=== PATIENT | female | born 1965 | race Caucasian/White ===

== ENCOUNTER 2017-10-02 21:31 | Emergency (ER) | payer BC ==
[2017-10-02] MEDS ORDERED: Sodium Chloride 0.9% 10 ML Syringe FLUSH PRN (22:19)
[2017-10-02] MEDS ORDERED: Ketorolac 30 MG/ML SDV IVPUSH ONE (22:19)
[2017-10-02] MEDS ORDERED: Sodium Chloride 0.9% 2.5 ML Syringe FLUSH PRN (22:19)
[2017-10-02] MEDS ORDERED: Sodium Chloride 0.9% 500 ML IV SCH (22:30)
--- NOTE | 2017-10-02 22:39 | EDM.PDOC ---
ED HPI GENERAL MEDICAL PROBLEM - General Chief Complaint: Abdominal Pain Stated Complaint: ABDOMINAL PAIN/SURGERY Time Seen by Provider: 10/02/17 22:09 - History of Present Illness INITIAL COMMENTS - FREE TEXT/NARRATIVE: HISTORY AND PHYSICAL: History of present illness: The patient is a 51-year-old female with a history of pancreatic cancer who underwent a splenectomy and partial pancreatectomy at [facility] last week and was just released this week on September 29. She said she traveled home and was doing well but she has been constipated since her surgery and is on multiple medications to try to improve that. She says she was given Dilaudid orally for pain and she doesn't take that because it is constipating her and she also complains of incisional pain because she is not taking any pain meds. Said she had a very small bowel movement today after taking [id number] laxatives but she has not tried GoLYTELY mag citrate or other colon preps. She has not a fever chest pain or shortness of breath and as far as her further cancer care plan she says that she did have one lymph node that was positive and therefore further evaluating that to see what further treatment she needs. Patient says her incision overall is feeling good but at one area but it feels swollen and she is concerned about that because that is where she has discomfort. She says she is here both for the constipation and the incisional pain. She otherwise has been eating and drinking normally and having no urine problems or flank pain. Review of systems: As per history of present illness and below otherwise all systems reviewed and negative. Past medical history: As per history of present illness and as reviewed below otherwise noncontributory. Surgical history: As per history of present illness and as reviewed below otherwise noncontributory. Social history: No reported history of drug or alcohol abuse. Family history: As per history of present illness and as reviewed below otherwise noncontributory. Physical exam: : Well-developed well-nourished female who is nontoxic and vital signs have been reviewed by me HEENT: Atraumatic, normocephalic, negative for conjunctival pallor or scleral icterus, mucous membranes moist, throat clear, neck supple, nontender, trachea midline. Lungs: Clear to auscultation, breath sounds equal bilaterally, chest nontender. Heart: S1S2, regular, negative for clicks, rubs, or JVD. Abdomen: Soft, nondistended, no sounds are hypoactive and on palpation there is some minimal tenderness at the per incisional area without rebound or guarding. There is no tympany on percussion. The incision is healing well without any erythema or drainage but there is a raised area in the more caudal aspect just to the right with some soft tissue swelling that is not fluctuant and it appears to be within the abdominal wall Negative for masses Negative for costovertebral tenderness. Pelvis: Stable nontender. Genitourinary: Deferred. Rectal: Deferred. Extremities: Atraumatic, negative for cords or calf pain. Neurovascular unremarkable. Neuro: Awake, alert, oriented. Cranial nerves II through XII unremarkable. Cerebellum unremarkable. Motor and sensory unremarkable throughout. Exam nonfocal. Diagnostics: CBC CMP CT scan of the abdomen and pelvis Therapeutics: IV fluids Toradol Testing results were discussed with the patient and family at bedside and she says that she has adequate pain options at home and does not want any further pain medication but would like some options for the constipation. I will give her a bowel prep recipe to follow and advised her to stay home tomorrow when she does this. Also advised her that she call her doctors at [facility] on Wednesday to let them know about today's events and guidance for further care Impression: Incisional abdominal pain and constipation stable Definitive disposition and diagnosis as appropriate pending reevaluation and review of above. Treatments COMMERCIAL OR INSTITUTIONAL CLEANER: Reports: Acetaminophen Other Treatments COMMERCIAL OR INSTITUTIONAL CLEANER: 21:00hrs Abdomen Pain Score (Numeric/FACES): 8 - Related Data Allergies Allergy/AdvReac Type Severity Reaction Status Date / Time No Known Allergies Allergy Verified 10/02/17 22:04 Home Meds: Home Meds Acetaminophen 2 tab PO Q6HR 10/02/17 [History] Calcium Carbonate 200 mg PO DAILY 10/02/17 [History] Diazepam [Valium] 5 mg PO QID PRN 10/02/17 [History] HYDROmorphone [Dilaudid] 2 mg PO Q4H PRN 10/02/17 [History] Ibuprofen 600 mg PO Q6HR 10/02/17 [History] Levothyroxine 50 mcg PO DAILY 10/02/17 [History] Polyethylene Glycol 3350 [MiraLAX] 17 gm PO DAILY 10/02/17 [History] Sennosides [Senokot] 8.6 mg PO BEDTIME 10/02/17 [History] Simethicone 160 mg PO DAILY 10/02/17 [History] traMADol [Ultram] 50 mg PO Q6H PRN 10/02/17 [History] Past Medical History HEENT History: Reports: None Cardiovascular History: Reports: None Respiratory History: Reports: None Other Gastrointestinal History: pancreatic cancer Genitourinary History: Reports: None 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 splenectomy Female Surgical History: Reports: Section Social & Family History - Family History Family Medical History: Noncontributory - Tobacco Use Smoking Status *Q: Never Smoker - Recreational Drug Use Recreational Drug Use: No ED ROS GENERAL - Review of Systems Review Of Systems: ROS reveals no pertinent complaints other than HPI. ED EXAM, GENERAL - Physical Exam Exam: See Below (see dictation) Course - Vital Signs Last Recorded V/S: Last Vital Signs Temp 37 C 10/02/17 22:05 Pulse 70 10/02/17 23:54 Resp 18 10/02/17 23:54 BP 177/95 H 10/02/17 23:54 Pulse Ox 98 10/02/17 23:54 - Orders/Labs/Meds Orders: Active Orders 24 hr Category Date Time Status Abdomen Pelvis w Cont [CT] Stat Exams 10/02/17 22:19 Taken Sodium Chloride 0.9% [Normal Saline] 500 ml Med 10/02/17 22:30 Active IV STAT Sodium Chloride 0.9% [Saline Flush] Med 10/02/17 22:19 Active 10 ml FLUSH ASDIRECTED PRN Sodium Chloride 0.9% [Saline Flush] Med 10/02/17 22:19 Active 2.5 ml FLUSH ASDIRECTED PRN Saline Lock Insert [OM.PC] Stat Oth 10/02/17 22:19 Ordered Medication Orders Sodium Chloride (Normal Saline) 500 mls @ 999 mls/hr IV STAT IRVING Last Admin: 10/02/17 22:42 Dose: 999 mls/hr Sodium Chloride (Saline Flush) 10 ml FLUSH ASDIRECTED PRN PRN Reason: Keep Vein Open Last Admin: 10/02/17 22:36 Dose: 10 ml Sodium Chloride (Saline Flush) 2.5 ml FLUSH ASDIRECTED PRN PRN Reason: Keep Vein Open Last Admin: 10/02/17 22:35 Dose: 2.5 ml Labs: Laboratory Tests 10/02/17 10/02/17 Range/Units 22:33 22:33 WBC 9.77 (4.0-11.0) K/uL RBC 3.85 L (4.30-5.90) M/uL Hgb 12.6 (12.0-16.0) g/dL Hct 37.5 (36.0-46.0) % MCV 97.4 (80.0-98.0) fL MCH 32.7 H (27.0-32.0) pg MCHC 33.6 (31.0-37.0) g/dL RDW Std Deviation 52.0 (28.0-62.0) fl RDW Coeff of Kelle 15 (11.0-15.0) % Plt Count 691 H (150-400) K/uL MPV 8.70 (7.40-12.00) fL Neut % (Auto) 60.3 (48.0-80.0) % Lymph % (Auto) 19.4 (16.0-40.0) % Will % (Auto) 13.8 (0.0-15.0) % Eos % (Auto) 5.8 (0.0-7.0) % Baso % (Auto) 0.7 (0.0-1.5) % Neut # (Auto) 5.9 H (1.4-5.7) K/uL Lymph # (Auto) 1.9 (0.6-2.4) K/uL Will # (Auto) 1.4 H (0.0-0.8) K/uL Eos # (Auto) 0.6 (0.0-0.7) K/uL Baso # (Auto) 0.1 (0.0-0.1) K/uL Nucleated RBC % 0.0 /100WBC Nucleated RBCs # 0 K/uL Sodium 137 (136-145) mmol/L Potassium 4.1 (3.5-5.1) mmol/L Chloride 104 (98-107) mmol/L Carbon Dioxide 25.2 (21.0-32.0) mmol/L BUN 8 (7.0-18.0) mg/dL Creatinine 0.8 (0.6-1.0) mg/dL Est Cr Clr Drug Dosing 75.70 mL/min Estimated GFR (MDRD) > 60.0 ml/min Glucose 139 H (74-106) mg/dL Calcium 9.2 (8.5-10.1) mg/dL Total Bilirubin 0.2 (0.2-1.0) mg/dL AST 31 (15-37) IU/L ALT 31 (14-63) IU/L Alkaline Phosphatase 85 (46-116) U/L Total Protein 7.3 (6.4-8.2) g/dL Albumin 3.3 L (3.4-5.0) g/dL Globulin 4.0 H (2.0-3.5) g/dL Albumin/Globulin Ratio 0.8 L (1.3-2.8) Meds: Medications Generic Name Dose Route Start Last Admin Trade Name Freq PRN Reason Stop Dose Admin Sodium Chloride 500 mls @ 999 mls/hr 10/02/17 22:30 10/02/17 22:42 Normal Saline IV 999 mls/hr STAT IRVING Administration Sodium Chloride 10 ml 10/02/17 22:19 10/02/17 22:36 Saline Flush FLUSH 10 ml ASDIRECTED PRN Administration Keep Vein Open Sodium Chloride 2.5 ml 10/02/17 22:19 10/02/17 22:35 Saline Flush FLUSH 2.5 ml ASDIRECTED PRN Administration Keep Vein Open Discontinued Medications Generic Name Dose Route Start Last Admin Trade Name Freq PRN Reason Stop Dose Admin Iopamidol 95 ml 10/02/17 23:46 10/02/17 23:53 Isovue-370 (76%) IVPUSH 10/02/17 23:47 95 ml ONETIME STA Administration Ketorolac Tromethamine 30 mg 10/02/17 22:19 10/02/17 22:42 Toradol IVPUSH 10/02/17 22:20 30 mg ONETIME ONE Administration Departure - Departure Time of Disposition: 00:36 Disposition: Home, Self-Care 01 Condition: Good Clinical Impression: Pain at surgical incision Constipation Qualifiers: Constipation type: other constipation type Qualified Code(s): K59.09 - Other constipation - Discharge Information Referrals: Ciarra Almonte NP [Primary Care Provider] - Forms: ED Department Discharge Additional Instructions: The following information is given to patients seen in the emergency department who are being discharged to home. This information is to outline your options for follow-up care. We provide all patients seen in our emergency department with a follow-up referral. The need for follow-up, as well as the timing and circumstances, are variable depending upon the specifics of your emergency department visit. If you don't have a primary care physician on staff, we will provide you with a referral. We always advise you to contact your personal physician following an emergency department visit to inform them of the circumstance of the visit and for follow-up with them and/or the need for any referrals to a consulting specialist. The emergency department will also refer you to a specialist when appropriate. This referral assures that you have the opportunity for followup care with a specialist. All of these measure are taken in an effort to provide you with optimal care, which includes your followup. Under all circumstances we always encourage you to contact your private physician who remains a resource for coordinating your care. When calling for followup care, please make the office aware that this follow-up is from your recent emergency room visit. If for any reason you are refused follow-up, please contact the [facility] emergency department at and ask to speak to the emergency department charge nurse. [facility] Primary care- Internal Medicine and Family [address] [address] Push hydration and eat a high-fiber diet. Please get the medium-sized container of MiraLAX, 238 g total in the container, and split this container into [address] each dose in an individual 30 ounce Gatorade. Please drink each of these bottles of Gatorade with MiraLAX over 2 hours. You may space them out over several hours. Please only drink clear liquids during this prep. Take Dulcolax [id number] tablets, 4 tablets at 12 noon on the day of this treatment. Please plan to stay at home for the 24 hours involving this care plan. Expect some abdominal cramping. Use all of your home medications as you choose. Please call your providers at [facility] on Wednesday to inform them of today's events and to seek further care plan. Return to ER as needed and as discussed - My Orders Last 24 Hours: My Active Orders 10/02/17 22:19 Abdomen Pelvis w Cont [CT] Stat Sodium Chloride 0.9% [Saline Flush] 10 ml FLUSH ASDIRECTED PRN Sodium Chloride 0.9% [Saline Flush] 2.5 ml FLUSH ASDIRECTED PRN Saline Lock Insert [OM.PC] Stat 10/02/17 22:30 Sodium Chloride 0.9% [Normal Saline] 500 ml IV STAT - Assessment/Plan Last 24 Hours: My Active Orders 10/02/17 22:19 Abdomen Pelvis w Cont [CT] Stat Sodium Chloride 0.9% [Saline Flush] 10 ml FLUSH ASDIRECTED PRN Sodium Chloride 0.9% [Saline Flush] 2.5 ml FLUSH ASDIRECTED PRN Saline Lock Insert [OM.PC] Stat 10/02/17 22:30 Sodium Chloride 0.9% [Normal Saline] 500 ml IV STAT
[2017-10-02 23:01] LABS: CHLORIDE,CL 104 mmol/L (98-107); SODIUM,NA 137 mmol/L (136-145)
[2017-10-02] MEDS ORDERED: Iopamidol 755 Mg/ML 100 ML Bottle IVPUSH STA (23:46)
--- NOTE | 2017-10-04 19:57 | CT ---
EXAM DATE: 10/02/17 PATIENT'S AGE: 51 Patient: JULISA FIELDS Facility: [place], [place] Site . Site : 1965 Study: CT Abdomen/Pelvis [id number]/12/2018 11:51:26 PM Ordering Physician: Joel Sterling Final Report: INDICATION: Abdominal Pain and Constipation. TECHNIQUE: CT abdomen and pelvis acquired with IV contrast. COMPARISON: September 13, 2017. FINDINGS: Lower chest: Unremarkable. Liver: Unremarkable. Spleen: Splenectomy changes Pancreas: The pancreatic head and uncinate process is unremarkable. Surgically absent body and tail of the pancreas which is new when compared to the previous examination. Nonspecific free fluid about the head of the pancreas. No loculated fluid collection. Gallbladder and bile ducts: Unremarkable. Kidneys: Unremarkable. Adrenal glands: Unremarkable. GI tract: Unremarkable. Appendix is normal. Vascular structures: Atherosclerotic disease. No sign of aneurysm. Lymph nodes: Unremarkable. Miscellaneous: Fact containing incisional ventral abdominal wall hernia. No free air. Free fluid in the pelvic cul de sac. Pelvic Organs: Unremarkable. Bones: Degenerative changes. IMPRESSION: Findings consistent with recent partial pancreatectomy and splenectomy changes. Nonspecific free fluid about the head of the pancreas. No loculated fluid collection. Additional fluid within the pelvic cul-de-sac.. Dictated by Monico Ledesma MD @ 10/03/2017 12:17:23 AM Dictated by: Monico Ledesma MD @ 10/03/2017 00:17:49 (Electronic Signature) Report Signed by Proxy. [facility]
== END 2017-10-03 00:55 | disposition home or self-care (01) ==
LOC: MW.ED 21:31
DX: G89.18 Other acute postprocedural pain (principal); R10.9 Unspecified abdominal pain; K59.09 Other constipation; E03.9 Hypothyroidism, unspecified; Z85.07 Personal history of malignant neoplasm of pancreas; Z79.899 Other long term (current) drug therapy
CPT/HCPCS: 36415; 74177; 80053; 85025; 96361; 96374; 99284; J1885; J7040; Q9967

== ENCOUNTER 2019-03-28 18:34 | Emergency (ER) | payer BC ==
[2019-03-28] MEDS ORDERED: Ondansetron 4 MG/2 ML SDV IVPUSH ONE (18:53)
[2019-03-28] MEDS ORDERED: Ketorolac 30 MG/ML SDV IVPUSH ONE (18:53)
[2019-03-28] MEDS ORDERED: Sodium Chloride 0.9% 1,000 ML IV ONE (18:53)
--- NOTE | 2019-03-28 18:58 | EDM.PDOC ---
ED HPI GENERAL MEDICAL PROBLEM - General Chief Complaint: Headache Stated Complaint: ABSCESS, MIGRAINE Time Seen by Provider: 03/28/19 18:36 Source of Information: Reports: Patient History Limitations: Reports: No Limitations - History of Present Illness INITIAL COMMENTS - FREE TEXT/NARRATIVE: HISTORY AND PHYSICAL: History of present illness: Patient is a 53-year-old female who presents to the emergency room with complaints of a sudden frontal headache. She reports that she was driving and started to develop sharp pain to the frontal scalp. Patient states that she recently was diagnosed with a dental abscess and had been placed on clindamycin. She is unsure if the dental abscess/pressure is causing her to have a headache. Prior to arrival in the emergency room she took 100 mg of tramadol. Patient denies any fever, chills, light sensitivity/noise sensitivity , change in vision, syncope or near syncope. Denies any chest pain, back pain, shortness of breath or cough. Denies any abdominal pain, nausea, vomiting, diarrhea, constipation or dysuria. Has not noted any blood in urine or stool. Patient has been eating and drinking appropriately. Review of systems: As per history of present illness and below otherwise all systems reviewed and negative. Past medical history: As per history of present illness and as reviewed below otherwise noncontributory. Surgical history: As per history of present illness and as reviewed below otherwise noncontributory. Social history: See social history for further information Family history: As per history of present illness and as reviewed below otherwise noncontributory. Physical exam: General: Well-developed and well-nourished 53-year-old female. Alert and oriented. Nontoxic appearing and in no acute distress. HEENT: Atraumatic, normocephalic, pupils equal and reactive bilaterally, negative for conjunctival pallor or scleral icterus, mucous membranes moist, TMs normal bilaterally, throat clear, neck supple, nontender, trachea midline. No drooling or trismus noted. No meningeal signs. No hot potato voice noted. Lungs: Clear to auscultation, breath sounds equal bilaterally, chest nontender. Heart: S1S2, regular rate and rhythm without overt murmur Abdomen: Soft, nondistended, nontender. Negative for masses or hepatosplenomegaly. Negative for costovertebral tenderness. Pelvis: Stable nontender. Skin: Intact, warm, dry. No lesions or rashes noted. Extremities: Atraumatic, moves all extremities per self without difficulty or deficits, negative for cords or calf pain. Neurovascular unremarkable. Neuro: Awake, alert, oriented. Cranial nerves II through XII unremarkable. Cerebellum unremarkable. Motor and sensory unremarkable throughout. Exam nonfocal. Notes: Vital signs and pain have improved after IV medications. Head CT shows no acute findings. Supportive care measures were reviewed and discussed. Voices understanding and is agreeable to plan of care. Denies any further questions or concerns at this time. Diagnostics: Head CT Therapeutics: IV fluids, Toradol, Zofran Prescription: None Impression: Headache Plan: 1. Continue taking your home medications as prescribed. 2. Take the remainder of the day to rest, medications you received today does cause drowsiness and not drive. 3. Follow-up with your primary care provider as we discussed. Return to the ED as needed and as discussed. Definitive disposition and diagnosis as appropriate pending reevaluation and review of above. headache Pain Score (Numeric/FACES): 10 - Related Data Allergies Allergy/AdvReac Type Severity Reaction Status Date / Time No Known Allergies Allergy Verified 03/28/19 18:47 Home Meds: Home Meds Acetaminophen 2 tab PO Q6HR 10/02/17 [History] Calcium Carbonate 200 mg PO DAILY 10/02/17 [History] HYDROmorphone [Dilaudid] 2 mg PO Q4H PRN 10/02/17 [History] Ibuprofen 600 mg PO Q6HR 10/02/17 [History] Levothyroxine 50 mcg PO DAILY 10/02/17 [History] Polyethylene Glycol 3350 [MiraLAX] 17 gm PO DAILY 10/02/17 [History] Sennosides [Senokot] 8.6 mg PO BEDTIME 10/02/17 [History] Simethicone 160 mg PO DAILY 10/02/17 [History] diazePAM [Valium] 5 mg PO QID PRN 10/02/17 [History] traMADol [Ultram] 50 mg PO Q6H PRN 10/02/17 [History] Past Medical History HEENT History: Reports: None Cardiovascular History: Reports: None Respiratory History: Reports: None Other Gastrointestinal History: pancreatic cancer Genitourinary History: Reports: None 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 splenectomy Female Surgical History: Reports: Section Endocrine Surgical History: Reports: None Oncologic Surgical History: Reports: None Social & Family History - Family History Family Medical History: Noncontributory - Tobacco Use Smoking Status *Q: Never Smoker Second Hand Smoke Exposure: No - Caffeine Use Caffeine Use: Reports: None - Recreational Drug Use Recreational Drug Use: No ED ROS GENERAL - Review of Systems Review Of Systems: ROS reveals no pertinent complaints other than HPI. - Physical Exam Exam: See Below (See dictation) Course - Vital Signs Last Recorded V/S: Last Vital Signs Temp 98.0 F 03/28/19 19:34 Pulse 68 03/28/19 19:34 Resp 20 03/28/19 19:34 BP 155/84 H 03/28/19 19:34 Pulse Ox 95 03/28/19 19:34 - Orders/Labs/Meds Orders: Active Orders 24 hr Category Date Time Status Sodium Chloride 0.9% [Normal Saline] 1,000 ml Med 03/28/19 18:53 Active IV STAT Medication Orders Sodium Chloride (Normal Saline) 1,000 mls @ 999 mls/hr IV STAT ONE Stop: 03/28/19 19:53 Last Admin: 03/28/19 19:07 Dose: 999 mls/hr Meds: Medications Generic Name Dose Route Start Last Admin Trade Name Freq PRN Reason Stop Dose Admin Sodium Chloride 1,000 mls @ 999 mls/hr 03/28/19 18:53 03/28/19 19:07 Normal Saline IV 03/28/19 19:53 999 mls/hr STAT ONE Administration Discontinued Medications Generic Name Dose Route Start Last Admin Trade Name Freq PRN Reason Stop Dose Admin Ketorolac Tromethamine 30 mg 03/28/19 18:53 03/28/19 19:07 Toradol IVPUSH 03/28/19 18:54 30 mg ONETIME ONE Administration Lorazepam 1 mg 03/28/19 19:32 03/28/19 19:41 Ativan IVPUSH 03/28/19 19:33 1 mg ONETIME ONE Administration Ondansetron HCl 4 mg 03/28/19 18:53 03/28/19 19:08 Zofran IVPUSH 03/28/19 18:54 4 mg ONETIME ONE Administration Departure - Departure Time of Disposition: 19:52 Disposition: Home, Self-Care 01 Clinical Impression: Headache Qualifiers: Headache type: unspecified Headache chronicity pattern: acute headache Intractability: not intractable Qualified Code(s): R51 - Headache - Discharge Information Instructions: General Headache Without Cause Referrals: Ciarra Almonte NP [Primary Care Provider] - Forms: ED Department Discharge Additional Instructions: The following information is given to patients seen in the emergency department who are being discharged to home. This information is to outline your options for follow-up care. We provide all patients seen in our emergency department with a follow-up referral. The need for follow-up, as well as the timing and circumstances, are variable depending upon the specifics of your emergency department visit. If you don't have a primary care physician on staff, we will provide you with a referral. We always advise you to contact your personal physician following an emergency department visit to inform them of the circumstance of the visit and for follow-up with them and/or the need for any referrals to a consulting specialist. The emergency department will also refer you to a specialist when appropriate. This referral assures that you have the opportunity for follow-up care with a specialist. All of these measure are taken in an effort to provide you with optimal care, which includes your follow-up. Under all circumstances we always encourage you to contact your private physician who remains a resource for coordinating your care. When calling for follow-up care, please make the office aware that this follow-up is from your recent emergency room visit. If for any reason you are refused follow-up, please contact the [facility] Emergency Department at and asked to speak to the emergency department charge nurse. [facility] Primary Care [address] [place] [id number] [facility] [address] [place] [address] 1. Continue taking your home medications as prescribed. 2. Take the remainder of the day to rest, medications you received today does cause drowsiness and not drive. 3. Follow-up with your primary care provider as we discussed. Return to the ED as needed and as discussed. - My Orders Last 24 Hours: My Active Orders 03/28/19 18:53 Sodium Chloride 0.9% [Normal Saline] 1,000 ml IV STAT - Assessment/Plan Last 24 Hours: My Active Orders 03/28/19 18:53 Sodium Chloride 0.9% [Normal Saline] 1,000 ml IV STAT
[2019-03-28] MEDS ORDERED: LORazepam 2 MG/ML SDV IVPUSH ONE (19:32)
--- NOTE | 2019-03-28 19:35 | CT ---
INDICATION: Worst headache TECHNIQUE: CT Head without i.v. contrast. COMPARISON: None FINDINGS: CSF space: The ventricles are normal for age. Brain: No evidence of mass, acute infarction or hemorrhage is seen. No mass-effect or midline shift is seen. The brain parenchyma is otherwise normal in appearance with preservation of the kee-white matter junction. Calvarium: The visualized paranasal sinuses are well aerated. The mastoid air cells are clear. The visualized orbits are grossly unremarkable. The calvarium is unremarkable in appearance with no fractures identified. Mucosal thickening with opacification of the nasal cavities noted. IMPRESSION: 1. No evidence of acute infarction, intracranial hemorrhage, or mass-effect seen. Prelim Report By Dr. Mitch Camarillo @ 03/28/2019 7:33:23 PM Please note that all CT scans at this facility use dose modulation, iterative reconstruction, and/or weight-based dosing when appropriate to reduce radiation dose to as low as reasonably achievable. Dictated by: MD @ 03/28/2019 19:34:13 (Electronically Signed)
== END 2019-03-28 20:19 | disposition home or self-care (01) ==
LOC: MW.ED 18:34
DX: R51 Headache (principal); E03.9 Hypothyroidism, unspecified; Z79.890 Hormone replacement therapy
CPT/HCPCS: 70450; 96361; 96374; 96375; 99284; J1885; J2060; J2405; J7040; 99283

== ENCOUNTER 2019-04-06 06:35 | Day surgery (SDC) | payer BC ==
[~2019-04-06 06:35] MED LIST: Lactated Ringers 1,000 ML IV SCH; Sodium Chloride 0.9% 10 ML SDV IV PRN; Sodium Chloride 0.9% 10 ML Syringe FLUSH PRN; Sodium Chloride 0.9% 2.5 ML Syringe FLUSH PRN; ceFAZolin 2 GM in Premix Bag 1 BAG IV ONE
[2019-04-06] MEDS ORDERED: Midazolam 1 MG/ML 2 ML SDV ONE (07:13)
[2019-04-06] MEDS ORDERED: fentaNYL 100 MCG/2 ML SDV ONE (07:13)
[2019-04-06] MEDS ORDERED: Lidocaine 2% 100 MG/5 ML Syringe ONE (07:13)
[2019-04-06] MEDS ORDERED: Propofol 200 MG/20 ML SDV ONE (07:14)
[2019-04-06] MEDS ORDERED: Bupivacaine 0.5% 30 ML SDV ONE (07:18)
[2019-04-06] MEDS ORDERED: Lidocaine 1% 20 ML MDV ONE (07:18)
--- NOTE | 2019-04-06 07:23 | PCM.PREANE ---
Preanesthetic Assessment - Anesthesia/Transfusion/Family Hx Anesthesia History: Prior Anesthesia Without Reaction Family History of Anesthesia Reaction: No Transfusion History: No Prior Transfusion(s) - Review of Systems General: No Symptoms Pulmonary: No Symptoms Cardiovascular: No Symptoms Gastrointestinal: No Symptoms Neurological: No Symptoms Other: Reports: None - Physical Assessment Height: 5 ft 5 in Weight: 88.451 kg ASA Class: 2 Mental Status: Alert & Oriented x3 Airway Class: Mallampati = 2 ROM/Head Extension: Full Lungs: Clear to Auscultation, Normal Respiratory Effort Cardiovascular: Regular Rate, Regular Rhythm - Allergies Allergies/Adverse Reactions: Allergies Allergy/AdvReac Type Severity Reaction Status Date / Time No Known Allergies Allergy Verified 03/31/19 09:37 - Blood Blood Available: No - Anesthesia Plan Pre-Op Medication Ordered: None - Acknowledgements Anesthesia Type Planned: General Anesthesia Pt an Appropriate Candidate for the Planned Anesthesia: Yes Alternatives and Risks of Anesthesia Discussed w Pt/Guardian: Yes Pt/Guardian Understands and Agrees with Anesthesia Plan: Yes Additional Comments: PMH: pancreatic ca in remission, depression, loose teeth particularly central maxillary incisor from chemotherapy PLAN: tiva or GA with MAC PreAnesthesia Questionnaire HEENT History: Reports: Other (See Below) Other HEENT History: wears glasses Cardiovascular History: Reports: None Respiratory History: Reports: None Gastrointestinal History: Reports: Other (See Below) Other Gastrointestinal History: pancreatic cancer Genitourinary History: Reports: Renal Calculus [employer]IVE History: Reports: Musculoskeletal History: Reports: None Neurological History: Reports: None Psychiatric History: Reports: Depression Endocrine/Metabolic History: Reports: Hypothyroidism, Obesity/BMI 30+ Hematologic History: Reports: None Immunologic History: Reports: None Oncologic (Cancer) History: Reports: Pancreatic Other Oncologic History: states she's now cancer free Dermatologic History: Reports: None - Infectious Disease History Infectious Disease History: Reports: Chicken Pox, Mumps - Past Surgical History Head Surgeries/Procedures: Reports: None HEENT Surgical History: Reports: None Cardiovascular Surgical History: Reports: None Respiratory Surgical History: Reports: None GI Surgical History: Reports: Other (See Below) Other GI Surgeries/Procedures: subtotal pancreatectomy. splenectomy Female Surgical History: Reports: Section, Kidney stone extraction Endocrine Surgical History: Reports: None Neurological Surgical History: Reports: None Musculoskeletal Surgical History: Reports: None Oncologic Surgical History: Reports: Other (See Below) Other Oncologic Surgeries/Procedures: sabi cath placement Dermatological Surgical History: Reports: None - SUBSTANCE USE Smoking Status *Q: Former Smoker Tobacco Use Within Last Twelve Months: No - HOME MEDS Home Medications: Home Meds traMADol [Ultram] 1 - 2 tab PO Q8H PRN 10/02/17 [History] Citalopram Hydrobromide [Celexa] 40 mg PO DAILY 03/31/19 [History] Levothyroxine Sodium [Levo-T] 125 mcg PO DAILY 03/31/19 [History] - CURRENT (IN HOUSE) MEDS Current Meds: Current Medications Lactated Ringer's (Ringers, Lactated) 1,000 mls @ 125 mls/hr IV ASDIRECTED IRVING Sodium Chloride (Saline Flush) 10 ml FLUSH ASDIRECTED PRN PRN Reason: Keep Vein Open Sodium Chloride (Saline Flush) 2.5 ml FLUSH ASDIRECTED PRN PRN Reason: Keep Vein Open Sodium Chloride (Normal Saline) 10 ml IV ASDIRECTED PRN PRN Reason: IV Use Discontinued Medications Fentanyl (Sublimaze) Confirm Administered Dose 100 mcg .ROUTE .STK-MED ONE Stop: 04/06/19 07:14 Cefazolin Sodium/Dextrose 2 gm (/ Premix) 50 mls @ 100 mls/hr IV ONETIME ONE Stop: 04/06/19 06:29 Lidocaine HCl (Xylocaine 2%) Confirm Administered Dose 100 mg .ROUTE .STK-MED ONE Stop: 04/06/19 07:14 Midazolam HCl (Versed 1 Mg/Ml) Confirm Administered Dose 2 mg .ROUTE .STK-MED ONE Stop: 04/06/19 07:14
[2019-04-06] MEDS ORDERED: ceFAZolin/Dextrose,Iso-Osmotic 2 GM/50 ML Duplex Bag IV ONE (08:08)
--- NOTE | 2019-04-06 08:48 | PCM.OPNOTE ---
- General Post-Op/Procedure Note Date of Surgery/Procedure: 04/06/19 Operative Procedure(s): Port a cath removal Findings: Port a cath on right side of chest. Appears intact Pre Op Diagnosis: Pancreatic cancer Post-Op Diagnosis: same Anesthesia Technique: MAC Primary Surgeon: Jennifer Montoya Condition: Good
--- NOTE | 2019-04-06 09:06 | PCM.POSTAN ---
POST ANESTHESIA ASSESSMENT - MENTAL STATUS Mental Status: Alert, Oriented - VITAL SIGNS Vital Signs: Last Vital Signs Temp 96.3 F 04/06/19 08:42 Pulse 69 04/06/19 09:02 Resp 13 04/06/19 09:02 BP 104/61 04/06/19 09:02 Pulse Ox 94 L 04/06/19 09:02 - RESPIRATORY Respiratory Status: Respiratory Rate WNL, Airway Patent, O2 Saturation Stable - CARDIOVASCULAR CV Status: Pulse Rate WNL, Blood Pressure Stable - GASTROINTESTINAL GI Status: No Symptoms - POST OP HYDRATION Hydration Status: Adequate & Stable
--- NOTE | 2019-04-06 11:15 | PCM48HPAN ---
Post Anesthesia Note - EVALUATION WITHIN 48HRS OF ANESTHETIC Vital Signs in Normal Range: Yes Patient Participated in Evaluation: Yes Respiratory Function Stable: Yes Airway Patent: Yes Cardiovascular Function Stable: Yes Hydration Status Stable: Yes Pain Control Satisfactory: Yes Nausea and Vomiting Control Satisfactory: Yes Mental Status Recovered: Yes Vital Signs: Last Vital Signs Temp 98.4 F 04/06/19 09:08 Pulse 70 04/06/19 09:25 Resp 15 04/06/19 09:25 BP 82/56 L 04/06/19 09:25 Pulse Ox 94 L 04/06/19 09:25
--- NOTE | 2019-04-06 13:13 | OR ---
SURGEON: JENNIFER MONTOYA MD DATE OF PROCEDURE: 04/06/2019 PREOPERATIVE DIAGNOSIS: Pancreatic cancer. POSTOPERATIVE DIAGNOSIS: Pancreatic cancer. PROCEDURE PERFORMED: Right side Port-A-Cath removal. PRIMARY SURGEON: Jennifer Montoya MD. ANESTHESIA: General LMA. FLUIDS: See Anesthesia record. ESTIMATED BLOOD LOSS: 2 mL. FINDINGS: Intact right Port-A-Cath. COMPLICATIONS: None. INDICATIONS: The patient is a 53-year-old female who has successfully completed treatment for pancreatic cancer and would like to have her Port-A-Cath removed. I explained the procedure; expected perioperative course; and the risks including bleeding, infection, or damage to surrounding structures. She verbalized understanding and wishes to proceed. PROCEDURE IN DETAIL: The patient was brought into the OR and placed on the OR table in supine position. A time-out was completed verifying the patient's name, age, date of , allergies, and procedure to be performed. General LMA anesthesia was induced. The right neck and chest were prepped and draped in usual standard fashion. The right arm was tucked to the patient's side. I anesthetized the area overlying the Port-A-Cath device with 1% lidocaine plain. A 10 blade was used to make an incision over her previous scar. Cautery was used to dissect down to the level of the scar capsule. The scar capsule was opened using cautery and the Port-A-Cath delivered out of the wound. Gentle pressure was placed on the catheter tubing, and I was able to easily remove the Port-A-Cath device. It was placed on the back table and inspected. It appeared to be intact. It was sent to pathology. The wound was then inspected and hemostasis was achieved with electrocautery. The wound cavity was then closed with interrupted layers of 3-0 Vicryl suture. The skin was closed with a running 4-0 Monocryl stitch. Steri-Strips and sterile dressings were applied. The patient tolerated the procedure well and was taken to the PACU in stable condition. All counts were complete and correct at the end of the case. GAVIN BAUTISTA /[id number]
== END 2019-04-06 10:30 | disposition home or self-care (01) ==
LOC: MW.SDS 06:35
PROVIDERS: ATTEND Surgery
DX: Z45.2 Encounter for adjustment and management of vascular access device (principal); E03.9 Hypothyroidism, unspecified; Z90.411 Acquired partial absence of pancreas; Z85.07 Personal history of malignant neoplasm of pancreas; Z92.21 Personal history of antineoplastic chemotherapy; Z79.899 Other long term (current) drug therapy
CPT/HCPCS: 36590; J0690; J2001; J2250; J2704; J3010; J7120; 00400; 88300; J3490

== ENCOUNTER 2019-12-21 08:28 | Day surgery (SDC) | payer BC ==
[~2019-12-21 08:28] MED LIST changes: +Propofol 200 MG/20 ML SDV ONE; -Sodium Chloride 0.9% 10 ML SDV IV PRN; -Sodium Chloride 0.9% 10 ML Syringe FLUSH PRN; -Sodium Chloride 0.9% 2.5 ML Syringe FLUSH PRN; -ceFAZolin 2 GM in Premix Bag 1 BAG IV ONE; +fentaNYL 100 MCG/2 ML SDV ONE
--- NOTE | 2019-12-21 09:19 | PCM.PREANE ---
Preanesthetic Assessment - Anesthesia/Transfusion/Family Hx Anesthesia History: Prior Anesthesia Without Reaction Family History of Anesthesia Reaction: No Transfusion History: No Prior Transfusion(s) - Review of Systems General: No Symptoms Pulmonary: No Symptoms Cardiovascular: No Symptoms Gastrointestinal: No Symptoms Neurological: No Symptoms Other: Reports: None - Physical Assessment NPO Status Date: 12/20/19 Height: 5 ft 5 in Weight: 89.358 kg ASA Class: 2 Mental Status: Alert & Oriented x3 Airway Class: Mallampati = 2 Dentition: Reports: Normal Dentition (loose L central maxillary incisor) ROM/Head Extension: Full Lungs: Clear to Auscultation, Normal Respiratory Effort Cardiovascular: Regular Rate, Regular Rhythm - Allergies Allergies/Adverse Reactions: Allergies Allergy/AdvReac Type Severity Reaction Status Date / Time No Known Allergies Allergy Verified 12/21/19 09:11 - Blood Blood Available: No - Anesthesia Plan Pre-Op Medication Ordered: None - Acknowledgements Anesthesia Type Planned: General Anesthesia (tiva) Pt an Appropriate Candidate for the Planned Anesthesia: Yes Alternatives and Risks of Anesthesia Discussed w Pt/Guardian: Yes Pt/Guardian Understands and Agrees with Anesthesia Plan: Yes Additional Comments: pmh: pancreatic cancer, s/p distal pancreatectomy, now in remission, thyroid replacement PLAAN: tiva PreAnesthesia Questionnaire HEENT History: Reports: Other (See Below) Other HEENT History: wears glasses/contacts Cardiovascular History: Reports: None Respiratory History: Reports: None Gastrointestinal History: Reports: Other (See Below) Other Gastrointestinal History: current dysphagia Genitourinary History: Reports: Renal Calculus 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: Musculoskeletal History: Reports: None Neurological History: Reports: None Psychiatric History: Reports: Anxiety, Depression Endocrine/Metabolic History: Reports: Hypothyroidism, Obesity/BMI 30+ Hematologic History: Reports: None Immunologic History: Reports: None Oncologic (Cancer) History: Reports: Pancreatic Other Oncologic History: states she's now cancer free Dermatologic History: Reports: None - Infectious Disease History Infectious Disease History: Reports: Chicken Pox, Mumps - Past Surgical History Head Surgeries/Procedures: Reports: None Cardiovascular Surgical History: Reports: Vascular Surgery Other Cardiovascular Surgeries/Procedures: insertion and removal of Port-a-Cath GI Surgical History: Reports: Other (See Below) Other GI Surgeries/Procedures: Subtotal Distal Pancreatectomy and Spleenectomy Female Surgical History: Reports: Section, Lithotripsy/ESWL Oncologic Surgical History: Reports: Other (See Below) Other Oncologic Surgeries/Procedures: Subtotal Distal Pancreatectomy, Spleenectomy - SUBSTANCE USE Smoking Status *Q: Former Smoker Tobacco Use Within Last Twelve Months: No Recreational Drug Use History: No - HOME MEDS Home Medications: Home Meds Levothyroxine Sodium [Levo-T] 125 mcg PO DAILY 03/31/19 [History] Desvenlafaxine [Desvenlafaxine ER] 50 mg PO BEDTIME 12/18/19 [History] - CURRENT (IN HOUSE) MEDS Current Meds: Current Medications Lactated Ringer's (Ringers, Lactated) 1,000 mls @ 125 mls/hr IV ASDIRECTED [facility] Last Admin: 12/21/19 09:11 Dose: 125 mls/hr Documented by: Discontinued Medications Fentanyl (Sublimaze) Confirm Administered Dose 100 mcg .ROUTE .STK-MED ONE Stop: 12/21/19 07:16 Lidocaine HCl (Xylocaine-Mpf 1%) Confirm Administered Dose 5 ml .ROUTE .STK-MED ONE Stop: 12/21/19 07:17 Propofol (Diprivan 20 Ml) Confirm Administered Dose 400 mg .ROUTE .STK-MED ONE Stop: 12/21/19 07:17
--- NOTE | 2019-12-21 11:02 | PCM48HPAN ---
Post Anesthesia Note - EVALUATION WITHIN 48HRS OF ANESTHETIC Vital Signs in Normal Range: Yes Patient Participated in Evaluation: Yes Respiratory Function Stable: Yes Airway Patent: Yes Cardiovascular Function Stable: Yes Hydration Status Stable: Yes Pain Control Satisfactory: Yes Nausea and Vomiting Control Satisfactory: Yes Mental Status Recovered: Yes Vital Signs: Last Vital Signs Temp 98.1 F 12/21/19 10:37 Pulse 67 12/21/19 10:49 Resp 14 12/21/19 10:49 BP 115/75 12/21/19 10:49 Pulse Ox 98 12/21/19 10:49
--- NOTE | 2019-12-21 11:52 | PCM.POSTAN ---
POST ANESTHESIA ASSESSMENT - MENTAL STATUS Mental Status: Alert, Oriented - VITAL SIGNS Vital Signs: Last Vital Signs Temp 98.1 F 12/21/19 10:37 Pulse 67 12/21/19 10:49 Resp 14 12/21/19 10:49 BP 115/75 12/21/19 10:49 Pulse Ox 98 12/21/19 10:49 - RESPIRATORY Respiratory Status: Respiratory Rate WNL, Airway Patent, O2 Saturation Stable - CARDIOVASCULAR CV Status: Pulse Rate WNL, Blood Pressure Stable - GASTROINTESTINAL GI Status: No Symptoms - POST OP HYDRATION Hydration Status: Adequate & Stable
--- NOTE | 2019-12-21 13:54 | PCM.OPNOTE ---
- General Post-Op/Procedure Note Date of Surgery/Procedure: 12/21/19 Operative Procedure(s): Diagnostic EGD and colonoscopy Findings: Possible mild duodenitis otherwise normal EGD, sigmoid colon polyp Pre Op Diagnosis: Change in bowel habits, dysphagia Post-Op Diagnosis: Sigmoid colon polyp, duodenitis [place] [facility] [place]geon: Jennifer Montoya Condition: Stable Free Text/Narrative:: Intake & Output 12/20/19 12/21/19 12/21/19 22:59 06:59 14:59 Intake Total 1100 Balance 1100
--- NOTE | 2019-12-22 16:59 | OR ---
SURGEON: JENNIFER MONTOYA MD DATE OF PROCEDURE: 12/21/2019 PREOPERATIVE DIAGNOSES: Change in bowel habits, dysphagia. POSTOPERATIVE DIAGNOSES: 1. Mild duodenitis. 2. Sigmoid colon polyp. PROCEDURES PERFORMED: Diagnostic esophagogastroduodenoscopy and colonoscopy. PRIMARY SURGEON: Jennifer Montoya MD ANESTHESIA: MAC. INSTRUMENT USED: Olympus endoscope and colonoscope. EXTENT OF EXAM: To the second portion of duodenum, to the cecum. PREPARATION: Good. LIMITATIONS: None. INDICATIONS FOR EXAMINATION: The patient is a 53-year-old female who presented to clinic with complaints of dysphagia as well as a change in her bowel habits. The patient and I discussed the need for diagnostic EGD and colonoscopy. The patient and I discussed the procedure, expected perioperative course, and risks. She verbalized understanding and wishes to proceed. PROCEDURE IN DETAIL: The patient was brought into the endoscopy suite and placed in a left lateral decubitus position. A time-out was completed verifying the patient's name, age, date of , allergies, and procedure to be performed. Monitored anesthesia care was induced and continuous oxygen was provided via nasal cannula throughout the procedure. A bite block was placed in the patient's mouth. After adequate sedation was achieved, a well-lubricated endoscope was placed in the patient's mouth and advanced under direct visualization to the second portion of duodenum. This appeared normal and a photograph was taken. The scope was then fully withdrawn while examining the color, texture, anatomy, and integrity of the mucosa of the upper GI tract. The duodenal bulb appeared to have some mild chronic inflammation. A biopsy was taken of this and sent to pathology, labeled as duodenum. The scope was brought into the stomach and a photograph was taken of the pylorus and GE junction. Both appeared anatomically normal. The gastric mucosa was free of any pathology. Biopsies were taken of the gastric antrum, body, and fundus and sent for histologic review and H. pylori testing. The scope was then brought into the distal esophagus and a photograph was taken of the GE junction. The Z-line appeared normal. A biopsy was taken 1 cm above the Z-line and sent to pathology, labeled as esophagus. The scope was removed and this portion of the procedure terminated. A digital rectal exam was performed. This exam was within normal limits. A well-lubricated colonoscope was inserted in the rectum and advanced under direct visualization to the level of the cecum. The cecum was identified by both visual and anatomic landmarks. A photograph was taken of the cecal cap; however, I was unable to retroflex the scope within the cecum due to looping of the scope more proximally. The scope was then fully withdrawn while examining the color, texture, anatomy, and integrity of the mucosa from the cecum to the anal canal. The patient was found to have a small sessile polyp within the sigmoid colon. This was removed in piecemeal fashion using cold biopsy forceps. The scope was then brought into the rectum and retroflexed to allow visualization of the anal canal opening. This appeared normal and a photograph was taken. The scope was then straightened out and fully withdrawn. Cecum to anus time was 7 minutes. The patient tolerated the procedure well and was taken to the PACU in stable condition. ENDOSCOPIC DIAGNOSES: 1. Mild duodenitis. 2. Sigmoid colon polyp. RECOMMENDATIONS: Follow up in clinic in 2 weeks. GAVIN BAUTISTA /[id number]
== END 2019-12-21 11:07 | disposition home or self-care (01) ==
LOC: MW.SDS 08:28
PROVIDERS: ATTEND Surgery
DX: K63.5 Polyp of colon (principal); K29.80 Duodenitis without bleeding; F41.9 Anxiety disorder, unspecified; F32.9 Major depressive disorder, single episode, unspecified; E03.9 Hypothyroidism, unspecified; E66.9 Obesity, unspecified; Z79.890 Hormone replacement therapy; Z87.891 Personal history of nicotine dependence; Z79.899 Other long term (current) drug therapy; Z68.32 Body mass index [BMI] 32.0-32.9, adult
CPT/HCPCS: 43239; 45380; J2001; J2704; J3010; J7120; 00813; 88305; 88312

== ENCOUNTER 2024-12-19 09:32 | Day surgery (SDC) | payer BC ==
[~2024-12-19 09:32] MED LIST changes: -Lactated Ringers 1,000 ML IV SCH; -Propofol 200 MG/20 ML SDV ONE; +Sodium Chloride 0.9% 10 ML Syringe FLUSH PRN; +Sodium Chloride 0.9% 2.5 ML Syringe FLUSH PRN; -fentaNYL 100 MCG/2 ML SDV ONE
[2024-12-19] MEDS: Lactated Ringers 1,000 ML IV SCH (10:22)
[2024-12-19] MEDS ORDERED: propofoL 500 MG/50 ML 50 ML ONE (10:24)
== END 2024-12-19 12:10 | disposition home or self-care (01) ==
LOC: MW.SDS 09:32
PROVIDERS: ATTEND Surgery
DX: D12.3 Benign neoplasm of transverse colon (principal); D12.5 Benign neoplasm of sigmoid colon; K63.89 Other specified diseases of intestine; E03.9 Hypothyroidism, unspecified; R19.4 Change in bowel habit; R13.10 Dysphagia, unspecified; F17.210 Nicotine dependence, cigarettes, uncomplicated; Z79.899 Other long term (current) drug therapy; Z79.890 Hormone replacement therapy
CPT/HCPCS: 00813; J2704; J7120